=== PATIENT | male | born 1985 | race Two or more races ===

== ENCOUNTER 2017-07-23 15:57 | Emergency (ER) | payer OTHER ==
[~2017-07-23] VITALS: Ht 190.5 cm; Wt 56.7 kg
[2017-07-23 15:57] VITALS: BP 107/56
--- NOTE | 2017-07-23 15:57 | NUR ---
PT AMBULATORY TO ER BED 14. PRESENTS W/ A LT THIGH ABSCESS, PUS NOTED. WAS SEEN AT [facility] LAST SUNDAY AND WAS PRESCRIBED ANTIBIOTICS. UNABLE TO RECALL. GOWNED AND PLACED ON MONITOR. AFEBRILE. AWAITING MD SANTIAGO.
--- NOTE | 2017-07-23 16:18 | NUR ---
DR RIVERA AT BEDSIDE FOR EVAL.
--- NOTE | 2017-07-23 16:32 | NUR ---
TECH AT BEDSIDE FOR WOUND CARE.
[2017-07-23] MEDS ORDERED: ONDANSETRON 4 MG TAB.RAPDIS ONE (16:45)
[2017-07-23] MEDS ORDERED: HYDROCODONE/APAP 10/325MG 1 EA TABLET ONE (16:45)
[2017-07-23] MEDS ORDERED: ONDANSETRON 4 MG TAB.RAPDIS SL ONE (17:00)
[2017-07-23] MEDS ORDERED: HYDROCODONE/APAP 10/325MG 1 EA TABLET PO ONE (17:00)
--- NOTE | 2017-07-23 17:18 | NUR ---
DR RIVERA AT BEDSIDE FOR ACI
== END 2017-07-23 17:26 | disposition home or self-care (01) ==
LOC: ER 16:00
DX: L02.416 Cutaneous abscess of left lower limb (principal)
CPT/HCPCS: 99282; A4606; A6402; Q0162; Z7610